=== PATIENT | female | born 1940 | race Two or more races ===

== ENCOUNTER 2018-04-26 11:43 | Emergency (ER) | payer MEDICARE, OTHER ==
[2018-04-26] MEDS ORDERED: Morphine Sulfate 4 mg/mL 1mL Syr IM STA (12:09)
[2018-04-26 12:23] LABS: % BASOPHILS 0.8 % (0.0-2.0); % EOSINOPHILS 0.8 % (0.0-5.0); % LYMPHOCYTES 21.4 % (20.0-50.0); % MONOCYTES 7.6 % (2.0-10.0); % NEUTROPHILS 69.4 % (40.0-80.0); HEMATOCRIT 40.2 % (41.0-60); HEMOGLOBIN 13.1 gm/dL (12-16); LYMPHOCYTE ABSOLUTE 1.1 Th/cmm (1.5-3.0); MEAN CELL VOLUME 84.3 fl (81-100); MEAN CORPUSCULAR HEMOGLOBIN 27.5 pg (27.0-31.0); MEAN CORPUSCULAR HGB CONC 32.6 pg (28.0-36.0); MEAN PLATELET VOLUME 8.5 fl; MONOCYTE ABSOLUTE 0.4 Th/cmm (0.3-1.0); NEUTROPHILE ABSOLUTE 3.6 Th/cmm (1.8-8.0); PLATELET COUNT 198 Th/cmm (150-400); RED BLOOD COUNT 4.76 Mil/cmm (3.80-5.20); RED CELL DISTRIBUTION WIDTH 13.5 % (11.5-20.0); WHITE BLOOD COUNT 5.1 Th/cmm (4.8-10.8)
[2018-04-26] MEDS ORDERED: Morphine Sulfate 4 mg/mL 1mL Syr ONE (12:24)
[2018-04-26 12:40] LABS: ALB/GLOB RATIO 1.3 (1.0-1.8); ALBUMIN 3.7 gm/dL (3.7-5.3); ALKALINE PHOSPHATASE 78 U/L (34-104); ANION GAP 11.4 (7.0-16.0); BILIRUBIN,TOTAL 0.5 mg/dL (0.3-1.0); BUN - UREA NITROGEN 25 mg/dL (7-25); CALCIUM SERUM 9.7 mg/dL (8.6-10.3); CHLORIDE 103 mEq/L (98-107); CREATININE - SERUM 0.7 mg/dL (0.6-1.2); GLUCOSE 112 mg/dL (70-105); POTASSIUM SERUM 3.4 mEq/L (3.5-5.1); SGOT 19 U/L (13-39); SGPT/ALT 17 U/L (7-52); SODIUM SERUM 138 mEq/L (136-145); TOTAL PROTEIN,SERUM 6.5 gm/dL (6.0-8.3); URIC ACID 4.7 mg/dL (2.3-6.6)
[2018-04-26 12:47] LABS: ESR SEDIMENTATION SED RATE 9 mm/hr (0-30)
[2018-04-26] MEDS ORDERED: Potassium Chloride 20 mEq ER Tab PO ONE ×2 (13:15→13:24)
--- NOTE | 2018-04-26 13:21 | ED Physician Chart ---
ED Chief Complaint/HPI - Patient Information Date Seen:: 04/26/18 Time Seen:: 11:59 Chief Complaint:: right knee pain, no h/o trauma History of Present Illness:: right knee pain, no h/o trauma patient has been eating a lot of meat and shellfish. has a h/o gout. Allergies:: Allergies Allergy/AdvReac Type Severity Reaction Status Date / Time No Known Allergies Allergy Verified 04/26/18 11:50 Vitals:: Vital Signs - 8 hr 04/26/18 11:59 Temp 98.6 F HR 69 RR 18 BP 156/63 O2 Sat % 99 Historian:: Patient, Family Member Review:: Nurse's Note Reviewed ED Review of Systems - Review of Systems General/Constitutional: No fever, No chills, No weight loss, No weakness, No diaphoresis, No edema, No loss of appetite Skin: No skin lesions, No rash, No bruising Head: No headache, No light-headedness Eyes: No loss of vision, No pain, No diplopia ENT: No earache, No nasal drainage, No sore throat, No tinnitus Neck: No neck pain, No swelling, No thyromegaly, No stiffness, No mass noted Cardio Vascular: No chest pain, No palpitations, No PND, No orthopnea, No edema Pulmonary: No SOB, No cough, No sputum, No wheezing GI: No nausea, No vomiting, No diarrhea, No pain, No melena, No hematochezia, No constipation, No hematemesis G/U: No dysuria, No frequency, No hematuria Musculoskeletal: Bone or joint pain, No back pain, No muscle pain Endocrine: No polyuria, No polydipsia Psychiatric: No prior psych history, No depression, No anxiety, No suicidal ideation Hematopoietic: Bruising Allergic/Immuno: No urticaria, No angioedema Neurological: No syncope, No focal symptoms, No weakness, No paresthesia, No headache, No seizure, No dizziness, No confusion, No vertigo ED Past Medical History - Past Medical History Obtainable: Yes Past Medical History: No significant medical hx Family Medical History - Family Member Mother Ethnicity: Non- Living Status: Hx Family Coronary Artery Disease: Yes Hx Family Hypertension: Yes ED Physical Exam - Physical Examination General/Constitutional: Awake, Well-developed, well-nourished, Alert, No distress, GCS 15, Non-toxic appearing, Ambulatory Head: Atraumatic Eyes: Lids, conjuctiva normal, PERRL, EOMI Other Skin comments:: Right knee is red and swollen and warm to the touch, consistent ED Labs/Radiology/EKG Results - Lab Results Results: Laboratory Tests 04/26/18 04/26/18 12:15 12:15 WBC 5.1 RBC 4.76 Hgb 13.1 Hct 40.2 L MCV 84.3 MCH 27.5 MCHC Differential 32.6 RDW 13.5 Plt Count 198 MPV 8.5 Neutrophils % 69.4 Lymphocytes % 21.4 Monocytes % 7.6 Eosinophils % 0.8 Basophils % 0.8 ESR 9 Sodium 138 Potassium 3.4 L Chloride 103 Carbon Dioxide 27.0 Anion Gap 11.4 BUN 25 Creatinine 0.7 Est GFR ( Amer) TNP Est GFR (Non-Af Amer) TNP BUN/Creatinine Ratio 35.7 Glucose 112 H Uric Acid 4.7 Calcium 9.7 Total Bilirubin 0.5 AST 19 ALT 17 Alkaline Phosphatase 78 Total Protein 6.5 Albumin 3.7 Globulin 2.8 Albumin/Globulin Ratio 1.3 ED Septic Shock - . Is Septic Shock (SBP<90, OR Lactate>4 mmol\L) present?: No - <6hrs of presentation: Vital Signs: Vital Signs - 8 hr 04/26/18 11:59 Temp 98.6 F HR 69 RR 18 BP 156/63 O2 Sat % 99 ED Reassessment (Disposition) - Reassessment Reassessment Condition:: Improved - Diagnosis Diagnosis:: Right knee pain, gout vs. infection Low potassium. - Aftercare/Follow up Instructions Notes:: follow up with primary care physician for repeat exam or return to emergency room. Medication Prescribed:: [place] 5/325 # 28, CURES run. Keflex 500 mg po qid # 30 Colchicine 0.6 m tablets at once and then 1 tablet thereafter. - Patient Disposition Discharge/Transfer:: Home
--- NOTE | 2018-04-27 10:09 | Diagnostic Imaging Report ---
Right knee (3 views) HISTORY: Pain No acute abnormalities. No fractures. 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 Spur formation seen about the tibial spines as well as about the tibial plateau areas. IMPRESSION: 1. No acute abnormalities 2. Degenerative changes as noted above
== END 2018-04-26 13:52 | disposition home or self-care (01) ==
LOC: ER 11:43
DX: M10.9 Gout, unspecified (principal); M25.561 Pain in right knee; E87.6 Hypokalemia; M25.461 Effusion, right knee
CPT/HCPCS: 36415-UA; 73562-TC-RT; 80053-TC; 84550-TC; 85025-TC; 85652-TC; J2001